=== PATIENT | female | born 1990 | race Caucasian/White ===

== ENCOUNTER 2020-09-22 15:59 | Emergency (ER) | payer BC, SELFPAY ==
[2020-09-22 16:40] VITALS: BP 115/92; PULSE 78; RESP 18; TEMP 36.9; O2SAT 99; BMI 20.1
--- NOTE | 2020-09-22 17:20 | HMH.EDUTC ---
[place] Disposition Clinical Impression: Allergic reaction Qualifiers: Encounter type: initial encounter Qualified Code(s): T78.40XA - Allergy, unspecified, initial encounter Disposition: Home, Self-Care Condition on Discharge: Good Instructions: DI for General Allergic Reactions Additional Instructions: Try to avoid contact with the offending substance. Don't start the oral steroids until tomorrow. Follow up with your regular doctor. GO TO THE ER FOR ANY WORSENING SYMPTOMS OR CONCERNS The vistiril (hydroxyzine) will make you drowsy, so don't drive or operate heavy machinery after taking it. Prescriptions: hydrOXYzine pamoate [Vistaril] 25 mg PO Q6HP PRN #30 cap PRN Reason: Itching Transmission Status: Received by [id number] methylPREDNISolone [Medrol] 4 mg PO DIRECTED 6 Days #21 [email or web address] Transmission Status: Received by [facility] #[id number] Referrals: Phyllis Monk [Primary Care Provider] - Forms: Work/School Release Time of Disposition: 17:25 Medical Decision Making - Medical Records Medical records reviewed: No: I reviewed the patient's medical records. - Luis Armando Inquiry Pt receiving controlled substance: No Vital Signs: 09/22/20 16:40 09/22/20 17:37 Temperature 98.4 F 98.4 F Temperature Source Oral Pulse Rate 78 Pulse Rate [Right Brachial] 78 Respiratory Rate 18 18 Blood Pressure 115/92 H Blood Pressure [Right Arm] 115/92 H Blood Pressure Mean [Right Arm] 99 Blood Pressure Source [Right Arm] Automatic Cuff Blood Pressure Position [Right Arm] Sitting 02 Sat by Pulse Oximetry 99 Oxygen Delivery Method Room Air Orders (Tests/Meds): ED MEDICATIONS Discontinued Medications Generic Name Dose Route Start Last Admin Trade Name Freq PRN Reason Stop Dose Admin Methylprednisolone Sodium Succinate 125 mg 09/22/20 17:14 09/22/20 17:29 Methylprednisolone Sod Succ 125mg Vial IM 09/22/20 17:15 125 mg ONCE ONE Administration [place] HPI - General Stated complaint: Rash Time Seen by Provider: 09/22/20 16:45 Mode of Arrival: Ambulatory Source of Information: Patient Limitations: No Limitations Description of Symptoms (Recalled from Triage Doc. by RN): PATIENT C/O ITCHY RASH ALL OVER BODY THAT STARTED LAST NIGHT WHILE SHE WAS AT WORK. SHE TOOK A BENADRYL WITH NO RELIEF HEENT Symptoms (Recalled from RN notes): No Resp Symptoms (Recalled from RN notes): No Skin Symptoms (Recalled from RN notes): No MS Symptoms (Recalled from RN notes): No Functional Status (Recalled from RN notes): WNL - History of Present Illness Provider Complaint: She states that last night at work she began itching and having a rash on her neck. Since then it has progressed to being generalized itching and rash. She denies any new medications. She denies changing anything like her soap or laundry detergent. She denies any chest pain, shortness of breath, throat or mouth swelling. - Related Data Previous Rx's Medication Instructions Recorded hydrOXYzine pamoate [Vistaril] 25 mg PO Q6HP PRN #30 cap 09/22/20 methylPREDNISolone [Medrol] 4 mg PO DIRECTED 6 Days #21 09/22/20 [email or web address] Allergies Allergy/AdvReac Type Severity Reaction Status Date / Time azithromycin [From Zithromax] Allergy Verified 09/22/20 16:56 codeine Allergy Verified 09/22/20 16:56 - Worker's Comp Is this a Worker's Comp case?: No [facility] History - Hepatitis A Screen Drug use history?: No High risk sexual behaviors?: No History of sexually transmitted infection?: No Currently employed?: No Childcare worker?: No Do you have indoor plumbing?: Yes Do you have electricity?: Yes Attestation statement:: This patient has been screened for Hepatitis A risk factors. I have reviewed the patient's past medical history: Yes Laterality Cases: Bilateral: Myringotomy (Ear Tubes), Tonsillectomy - Social History Alcohol Intake: never Occupational Status: other ROS Obtained: Yes All systems
[2020-09-22 17:37] VITALS: BP 115/92; PULSE 78; RESP 18; TEMP 36.9; O2SAT 99
== END 2020-09-22 17:41 | disposition home or self-care (01) ==
PROVIDERS: Emergency Provider Nurse Practitioner Family; PCP Family Medicine
DX: T78.40XA Allergy, unspecified, initial encounter (principal); R03.0 Elevated blood-pressure reading, without diagnosis of hypertension; Z88.1 Allergy status to other antibiotic agents; Z88.5 Allergy status to narcotic agent
CPT/HCPCS: 96372; 99201

== ENCOUNTER → 2020-12-11 13:46 | Outpatient (CLI) | payer BC, SELFPAY | PROVIDERS: PCP Family Medicine; Visit Provider Family Medicine | DX: Z03.818 Encounter for observation for suspected exposure to other biological agents ruled out (principal) | CPT/HCPCS: U0003 ==

== ENCOUNTER → 2021-03-14 19:04 | Outpatient (CLI) | payer BC, SELFPAY | PROVIDERS: PCP Family Medicine; Visit Provider Family Medicine | DX: Z01.818 Encounter for other preprocedural examination (principal); Z11.52 Encounter for screening for COVID-19 | CPT/HCPCS: U0003 ==